=== PATIENT | male | born 1965 | race Caucasian/White ===

== ENCOUNTER 2018-10-20 14:00 | Inpatient (IN) ==
[2018-10-20] MEDS ORDERED: DEXTROSE 50% 25 GM/50 ML VIAL IV PRN (18:29)
[2018-10-20] MEDS ORDERED: ALBUTEROL 2.5 MG/3 ML NEB RESP TX PRN (18:29)
[2018-10-20] MEDS ORDERED: GLUCAGON 1 MG VIAL IM PRN (18:29)
[2018-10-20] MEDS ORDERED: ONDANSETRON 4 MG/2 ML VIAL IV PRN (18:29)
[2018-10-20] MEDS ORDERED: guaiFENesin/DM ER 600-30 MG TABLET PO PRN (18:29)
[2018-10-20] MEDS ORDERED: cefTRIAXone 1,000 MG in SYRINGE 1 EACH IV SCH (18:30)
[2018-10-20] MEDS: AZITHROMYCIN INJ 500 MG in SODIUM CHLORIDE 0.9% 250 ML IV SCH (19:02)
[2018-10-20] MEDS: ENOXAPARIN 40 MG/0.4 ML SYRINGE SUBCUT SCH (19:03)
[2018-10-20] MEDS: SODIUM CHLORIDE 0.9% 1,000 ML IV SCH (19:03)
[2018-10-20] MEDS: ALBUTEROL 2.5 MG/3 ML NEB RESP TX SCH (20:17)
[2018-10-20] MEDS: INSULIN REGULAR 100 UNIT/ML SUBCUT SCH (20:36)
[2018-10-21] MEDS: ALBUTEROL 2.5 MG/3 ML NEB RESP TX SCH ×4 (00:25→19:07)
[2018-10-21 03:52] LABS: Basophils % 0.2 % (0.0-0.8); Eosinophils % 0.2 % (0.00-10.9); Hematocrit 39.4 VOL% (42.0-52.0); Hemoglobin 12.1 GM/DL (14.0-18.0); Immature Granulocytes % 0.7 %; Immature Granulocytes Absolute 0.08 #; Lymphocytes # 1.6 10*3/uL (1.4-4.0); Lymphocytes % 14.5 % (21.2-54.2); Mean Corpuscular HGB Conc 30.7 GM/DL (32-36); Mean Corpuscular Volume 82.1 FL (87-102); Mean Platelet Volume 10.4 FL (9.6-12.0); Monocytes % 10.3 % (1.7-12.7); Neutrophils % 74.1 % (38.7-73.9); Platelet Count 336 T/CUMM (130-400); Red Cell Distribution Width 14.8 % (9.3-17.3); White Blood Count 11.3 T/CUMM (4-12)
[2018-10-21 04:07] LABS: Calcium 8.4 MG/DL (8.5-10.1); Osmolality,Calculated 278.7 MOS/KG (273-304)
[2018-10-21] MEDS: SODIUM CHLORIDE 0.9% 1,000 ML IV SCH ×3 (06:00→22:00)
[2018-10-21 06:52] LABS: Band Neutrophils 2 % (0-10); Hypochromasia 1+; Lymphocytes 16 % (20-55); Platelet Estimate Adequate; Segmented Neutrophils 75 % (50-85); Total Cells Counted 100
[2018-10-21 08:23] LABS: PT Patient Result 10.5 SECS
[2018-10-21] MEDS: INSULIN REGULAR 100 UNIT/ML SUBCUT SCH ×4 (09:08→21:05)
[2018-10-21] MEDS: PANTOPRAZOLE 40 MG TABLET PO SCH (09:11)
[2018-10-21] MEDS: PIPERACILLIN/TAZOBACTAM 3.375 MG in SODIUM CHLORIDE 0.9% 100 ML IV SCH ×2 (10:35→18:43)
[2018-10-21] MEDS ORDERED: cefTRIAXone 1,000 MG in SYRINGE 1 EACH IV SCH (13:00)
[2018-10-21] MEDS: KETOROLAC 30 MG/1 ML VIAL IV SCH ×2 (15:11→21:05)
[2018-10-21] MEDS: VANCOMYCIN INJ 1,250 MG in SODIUM CHLORIDE 0.9% 250 ML IV SCH (15:11)
[2018-10-21] MEDS: METAXALONE 800 MG TABLET PO SCH ×2 (15:11→21:05)
[2018-10-21] MEDS: AZITHROMYCIN INJ 500 MG in SODIUM CHLORIDE 0.9% 250 ML IV SCH (17:48)
[2018-10-21] MEDS: ENOXAPARIN 40 MG/0.4 ML SYRINGE SUBCUT SCH (17:48)
[2018-10-22] MEDS: ALBUTEROL 2.5 MG/3 ML NEB RESP TX SCH ×4 (00:24→20:33)
[2018-10-22] MEDS: KETOROLAC 30 MG/1 ML VIAL IV SCH ×4 (03:05→21:33)
[2018-10-22] MEDS: PIPERACILLIN/TAZOBACTAM 3.375 MG in SODIUM CHLORIDE 0.9% 100 ML IV SCH ×3 (03:07→20:01)
[2018-10-22 04:57] LABS: Basophils % 0.4 % (0.0-0.8); Eosinophils # 0.1 10*3/uL (0.0-0.87); Eosinophils % 1.1 % (0.00-10.9); Hematocrit 39.8 VOL% (42.0-52.0); Hemoglobin 12.1 GM/DL (14.0-18.0); Immature Granulocytes % 1.2 %; Immature Granulocytes Absolute 0.13 #; Lymphocytes # 1.4 10*3/uL (1.4-4.0); Lymphocytes % 12.5 % (21.2-54.2); Mean Corpuscular HGB Conc 30.4 GM/DL (32-36); Mean Corpuscular Volume 82.7 FL (87-102); Mean Platelet Volume 10.6 FL (9.6-12.0); Monocytes % 10.6 % (1.7-12.7); Neutrophils % 74.2 % (38.7-73.9); Platelet Count 329 T/CUMM (130-400); Red Blood Count 4.81 MC/CUMM (3.8-5.5); Red Cell Distribution Width 14.8 % (9.3-17.3); White Blood Count 11.1 T/CUMM (4-12)
[2018-10-22 05:15] LABS: Calcium 8.4 MG/DL (8.5-10.1); Osmolality,Calculated 284.5 MOS/KG (273-304)
[2018-10-22] MEDS: VANCOMYCIN INJ 1,250 MG in SODIUM CHLORIDE 0.9% 250 ML IV SCH (09:11)
[2018-10-22] MEDS: INSULIN REGULAR 100 UNIT/ML SUBCUT SCH ×4 (09:11→21:32)
[2018-10-22] MEDS ORDERED: MORPHINE 10 MG/1 ML VIAL IV ONE (10:30)
[2018-10-22] MEDS ORDERED: LIDOCAINE 1%/EPI INJ 20 ML VIAL MISC INJ ONE ×2 (10:30→11:30)
[2018-10-22] MEDS ORDERED: ALTEPLASE 5 MG in SYRINGE 1 EACH INTRAPLEUR ONE (15:12)
[2018-10-22] MEDS: METAXALONE 800 MG TABLET PO SCH ×3 (15:26→21:33)
[2018-10-22] MEDS: AZITHROMYCIN 250 MG TABLET PO SCH (15:28)
[2018-10-22] MEDS: PANTOPRAZOLE 40 MG TABLET PO SCH (15:28)
[2018-10-22] MEDS: ENOXAPARIN 40 MG/0.4 ML SYRINGE SUBCUT SCH (20:02)
[2018-10-22] MEDS: MORPHINE 4 MG/1 ML VIAL IV PRN (21:32)
[2018-10-23] MEDS: ALBUTEROL 2.5 MG/3 ML NEB RESP TX SCH ×4 (00:41→19:03)
[2018-10-23] MEDS: VANCOMYCIN INJ 1,250 MG in SODIUM CHLORIDE 0.9% 250 ML IV SCH (00:44)
[2018-10-23] MEDS: PIPERACILLIN/TAZOBACTAM 3.375 MG in SODIUM CHLORIDE 0.9% 100 ML IV SCH ×2 (02:07→21:20)
[2018-10-23] MEDS: MORPHINE 4 MG/1 ML VIAL IV PRN (02:47)
[2018-10-23 05:59] LABS: Calcium 8.4 MG/DL (8.5-10.1); Osmolality,Calculated 286.4 MOS/KG (273-304)
[2018-10-23 06:10] LABS: Basophils % 0.3 % (0.0-0.8); Eosinophils # 0.2 10*3/uL (0.0-0.87); Eosinophils % 1.5 % (0.00-10.9); Hematocrit 38.3 VOL% (42.0-52.0); Immature Granulocytes % 0.8 %; Immature Granulocytes Absolute 0.09 #; Lymphocytes # 1.5 10*3/uL (1.4-4.0); Mean Corpuscular Volume 83.3 FL (87-102); Mean Platelet Volume 11.1 FL (9.6-12.0); Monocytes % 8.3 % (1.7-12.7); Neutrophils % 76.1 % (38.7-73.9); Platelet Count 283 T/CUMM (130-400); White Blood Count 11.5 T/CUMM (4-12)
[2018-10-23 06:11] LABS: Hemoglobin 11.5 GM/DL (14.0-18.0)
[2018-10-23] MEDS ORDERED: ALTEPLASE 5 MG in SYRINGE 1 EACH INTRAPLEUR ONE (09:00)
[2018-10-23] MEDS: AZITHROMYCIN 250 MG TABLET PO SCH (09:24)
[2018-10-23] MEDS: METAXALONE 800 MG TABLET PO SCH ×3 (09:25→21:20)
[2018-10-23] MEDS: PANTOPRAZOLE 40 MG TABLET PO SCH (09:25)
[2018-10-23] MEDS: SODIUM CHLORIDE 0.9% 1,000 ML IV SCH ×3 (18:28→23:31)
[2018-10-23] MEDS: ENOXAPARIN 40 MG/0.4 ML SYRINGE SUBCUT SCH (18:30)
[2018-10-23] MEDS: VANCOMYCIN INJ 1,500 MG in SODIUM CHLORIDE 0.9% 500 ML IV SCH (18:31)
[2018-10-23] MEDS: HYDROmorphone 2 MG/1 ML VIAL IV PRN (21:19)
[2018-10-23] MEDS: INSULIN REGULAR 100 UNIT/ML SUBCUT SCH ×2 (23:08→23:31)
[2018-10-23] MEDS: ACETAMINOPHEN 325 MG TABLET PO PRN (23:17)
[2018-10-23] MEDS: INSULIN GLARGINE 100 UNIT/ML SUBCUT SCH (23:32)
[2018-10-24] MEDS: ALBUTEROL 2.5 MG/3 ML NEB RESP TX SCH ×4 (00:43→19:09)
[2018-10-24] MEDS: VANCOMYCIN INJ 1,500 MG in SODIUM CHLORIDE 0.9% 500 ML IV SCH ×2 (01:42→15:31)
[2018-10-24] MEDS: PIPERACILLIN/TAZOBACTAM 3.375 MG in SODIUM CHLORIDE 0.9% 100 ML IV SCH ×3 (02:17→19:23)
[2018-10-24] MEDS: HYDROmorphone 2 MG/1 ML VIAL IV PRN ×3 (05:07→19:14)
[2018-10-24] MEDS: INSULIN GLARGINE 100 UNIT/ML SUBCUT SCH (08:00)
[2018-10-24] MEDS: INSULIN REGULAR 100 UNIT/ML SUBCUT SCH ×3 (08:00→22:25)
[2018-10-24] MEDS: METAXALONE 800 MG TABLET PO SCH ×3 (09:54→22:03)
[2018-10-24] MEDS: AZITHROMYCIN 250 MG TABLET PO SCH (09:54)
[2018-10-24] MEDS: PANTOPRAZOLE 40 MG TABLET PO SCH (09:54)
[2018-10-24] MEDS: SODIUM CHLORIDE 0.9% 1,000 ML IV SCH ×2 (15:30→22:25)
[2018-10-24] MEDS: ENOXAPARIN 40 MG/0.4 ML SYRINGE SUBCUT SCH (19:15)
[2018-10-24] MEDS: VANCOMYCIN INJ 1,250 MG in SODIUM CHLORIDE 0.9% 250 ML IV SCH (23:10)
[2018-10-25] MEDS: ALBUTEROL 2.5 MG/3 ML NEB RESP TX SCH ×4 (00:53→18:30)
[2018-10-25] MEDS: VANCOMYCIN INJ 1,500 MG in SODIUM CHLORIDE 0.9% 500 ML IV SCH ×2 (01:10→14:14)
[2018-10-25] MEDS: HYDROmorphone 2 MG/1 ML VIAL IV PRN ×5 (03:06→22:00)
[2018-10-25] MEDS: PIPERACILLIN/TAZOBACTAM 3.375 MG in SODIUM CHLORIDE 0.9% 100 ML IV SCH ×3 (03:09→20:12)
[2018-10-25 05:21] LABS: Basophils % 0.2 % (0.0-0.8); Eosinophils # 0.1 10*3/uL (0.0-0.87); Eosinophils % 0.6 % (0.00-10.9); Hematocrit 34.9 VOL% (42.0-52.0); Hemoglobin 10.8 GM/DL (14.0-18.0); Immature Granulocytes % 0.8 %; Immature Granulocytes Absolute 0.14 #; Lymphocytes # 1.8 10*3/uL (1.4-4.0); Lymphocytes % 10.6 % (21.2-54.2); Mean Corpuscular HGB Conc 30.9 GM/DL (32-36); Mean Corpuscular Volume 81.9 FL (87-102); Mean Platelet Volume 10.6 FL (9.6-12.0); Neutrophils % 80.8 % (38.7-73.9); Platelet Count 357 T/CUMM (130-400); Red Blood Count 4.26 MC/CUMM (3.8-5.5); Red Cell Distribution Width 14.7 % (9.3-17.3); White Blood Count 16.6 T/CUMM (4-12)
[2018-10-25 05:39] LABS: Calcium 8.3 MG/DL (8.5-10.1); Osmolality,Calculated 273.8 MOS/KG (273-304)
[2018-10-25] MEDS: SODIUM CHLORIDE 0.9% 1,000 ML IV SCH ×4 (06:18→20:09)
[2018-10-25] MEDS: METAXALONE 800 MG TABLET PO SCH ×4 (07:54→20:07)
[2018-10-25] MEDS: AZITHROMYCIN 250 MG TABLET PO SCH ×2 (07:55→09:48)
[2018-10-25] MEDS: PANTOPRAZOLE 40 MG TABLET PO SCH ×2 (07:56→09:48)
[2018-10-25] MEDS: INSULIN REGULAR 100 UNIT/ML SUBCUT SCH ×4 (07:58→21:27)
[2018-10-25] MEDS: INSULIN GLARGINE 100 UNIT/ML SUBCUT SCH (09:48)
[2018-10-25] MEDS: ENOXAPARIN 40 MG/0.4 ML SYRINGE SUBCUT SCH (17:58)
[2018-10-26] MEDS: VANCOMYCIN INJ 1,500 MG in SODIUM CHLORIDE 0.9% 500 ML IV SCH ×2 (00:55→15:47)
[2018-10-26] MEDS: HYDROmorphone 2 MG/1 ML VIAL IV PRN ×5 (01:45→20:11)
[2018-10-26] MEDS: PIPERACILLIN/TAZOBACTAM 3.375 MG in SODIUM CHLORIDE 0.9% 100 ML IV SCH ×3 (04:59→20:16)
[2018-10-26 07:14] LABS: Basophils % 0.2 % (0.0-0.8); Eosinophils # 0.2 10*3/uL (0.0-0.87); Hematocrit 35.6 VOL% (42.0-52.0); Hemoglobin 10.9 GM/DL (14.0-18.0); Immature Granulocytes % 0.7 %; Immature Granulocytes Absolute 0.13 #; Lymphocytes # 1.6 10*3/uL (1.4-4.0); Mean Corpuscular HGB Conc 30.6 GM/DL (32-36); Mean Corpuscular Volume 81.8 FL (87-102); Monocytes % 7.8 % (1.7-12.7); Neutrophils % 81.3 % (38.7-73.9); Platelet Count 355 T/CUMM (130-400); Red Blood Count 4.35 MC/CUMM (3.8-5.5); Red Cell Distribution Width 14.7 % (9.3-17.3); White Blood Count 17.4 T/CUMM (4-12)
[2018-10-26] MEDS: ALBUTEROL 2.5 MG/3 ML NEB RESP TX SCH ×4 (07:14→18:30)
[2018-10-26 07:37] LABS: Calcium 8.3 MG/DL (8.5-10.1); Osmolality,Calculated 268.2 MOS/KG (273-304)
[2018-10-26] MEDS: METAXALONE 800 MG TABLET PO SCH ×2 (08:36→15:43)
[2018-10-26] MEDS: AZITHROMYCIN 250 MG TABLET PO SCH (08:36)
[2018-10-26] MEDS: PANTOPRAZOLE 40 MG TABLET PO SCH (08:36)
[2018-10-26] MEDS: INSULIN REGULAR 100 UNIT/ML SUBCUT SCH ×3 (09:16→17:14)
[2018-10-26] MEDS: INSULIN GLARGINE 100 UNIT/ML SUBCUT SCH (09:16)
[2018-10-26] MEDS: SODIUM CHLORIDE 0.9% 1,000 ML IV SCH ×2 (09:17→16:15)
[2018-10-26] MEDS: tiZANidine 4 MG TABLET PO PRN ×2 (13:29→20:11)
[2018-10-26] MEDS ORDERED: MAGNESIUM HYDROXIDE SUSP 30 ML UDCUP PO PRN (13:44)
[2018-10-26] MEDS: POLYETHYLENE GLYCOL POWDER 17 GM PACK PO SCH (14:08)
[2018-10-26] MEDS: ACETAMINOPHEN 325 MG TABLET PO PRN (20:10)
[2018-10-27] MEDS: HYDROmorphone 2 MG/1 ML VIAL IV PRN ×4 (01:02→18:30)
[2018-10-27] MEDS: VANCOMYCIN INJ 1,500 MG in SODIUM CHLORIDE 0.9% 500 ML IV SCH ×2 (01:04→15:10)
[2018-10-27] MEDS: INSULIN REGULAR 100 UNIT/ML SUBCUT SCH ×5 (01:25→21:40)
[2018-10-27] MEDS: PIPERACILLIN/TAZOBACTAM 3.375 MG in SODIUM CHLORIDE 0.9% 100 ML IV SCH ×3 (05:30→19:46)
[2018-10-27] MEDS: SODIUM CHLORIDE 0.9% 1,000 ML IV SCH ×2 (05:31→15:11)
[2018-10-27 05:36] LABS: Basophils % 0.3 % (0.0-0.8); Eosinophils # 0.2 10*3/uL (0.0-0.87); Eosinophils % 1.5 % (0.00-10.9); Hemoglobin 10.7 GM/DL (14.0-18.0); Immature Granulocytes % 0.8 %; Immature Granulocytes Absolute 0.12 #; Lymphocytes # 1.6 10*3/uL (1.4-4.0); Lymphocytes % 10.9 % (21.2-54.2); Mean Corpuscular HGB Conc 29.7 GM/DL (32-36); Mean Corpuscular Volume 82.9 FL (87-102); Mean Platelet Volume 10.5 FL (9.6-12.0); Monocytes % 7.8 % (1.7-12.7); Neutrophils % 78.7 % (38.7-73.9); Platelet Count 397 T/CUMM (130-400); Red Blood Count 4.34 MC/CUMM (3.8-5.5); Red Cell Distribution Width 14.6 % (9.3-17.3); White Blood Count 14.3 T/CUMM (4-12)
[2018-10-27 06:14] LABS: Calcium 8.5 MG/DL (8.5-10.1); Osmolality,Calculated 270.1 MOS/KG (273-304)
[2018-10-27] MEDS ORDERED: ALBUTEROL/IPRATROPIUM 3 ML NEB RESP TX ONE (07:00)
[2018-10-27] MEDS ORDERED: DIAZEPAM 5 MG TABLET PO ONE (07:00)
[2018-10-27] MEDS: ALBUTEROL 2.5 MG/3 ML NEB RESP TX SCH ×4 (07:15→19:25)
[2018-10-27] MEDS: INSULIN GLARGINE 100 UNIT/ML SUBCUT SCH (08:30)
[2018-10-27] MEDS ORDERED: BUPIVACAINE LIPOSOMAL 20 ML/266 MG VIAL ONE (09:27)
[2018-10-27] MEDS ORDERED: BUPIVACAINE 0.5% 50 ML VIAL ONE (09:41)
[2018-10-27] MEDS ORDERED: DEXAMETHASONE 4 MG/1 ML VIAL ONE ×2 (09:41→13:15)
[2018-10-27] MEDS ORDERED: EPINEPHrine 1 MG/ML VIAL ONE (09:41)
[2018-10-27] MEDS ORDERED: LIDOCAINE 1% 5 ML VIAL ONE (09:42)
[2018-10-27] MEDS ORDERED: HYDROmorphone 2 MG/1 ML VIAL ONE (10:03)
[2018-10-27] MEDS ORDERED: NITROGLYCERIN DRIP 0 MG/0 ML BOTTLE IV ONE (10:03)
[2018-10-27] MEDS ORDERED: HYDROmorphone 2 MG/1 ML VIAL IV ONE (10:30)
[2018-10-27] MEDS ORDERED: PROPOFOL 200 MG/20 ML VIAL IV ONE (13:14)
[2018-10-27] MEDS ORDERED: NEOSTIGMINE 10 MG/10 ML VIAL ONE (13:15)
[2018-10-27] MEDS ORDERED: MIDAZOLAM 2 MG/2 ML VIAL ONE (13:15)
[2018-10-27] MEDS ORDERED: ROCURONIUM 100 MG/10 ML VIAL IV ONE (13:15)
[2018-10-27] MEDS ORDERED: PHENYLEPHRINE 1 MG/10 ML SYRINGE IV ONE (13:15)
[2018-10-27] MEDS ORDERED: SEVOFLURANE 1 UNIT/15 MINUTE INH ONE (13:15)
[2018-10-27] MEDS ORDERED: ACETAMINOPHEN 1,000 MG/100 ML VIAL IV ONE (13:15)
[2018-10-27] MEDS ORDERED: ONDANSETRON 4 MG/2 ML VIAL ONE (13:15)
[2018-10-27] MEDS ORDERED: GLYCOPYRROLATE 0.4 MG/2 ML VIAL ONE (13:15)
[2018-10-27] MEDS ORDERED: LACTATED RINGERS 2,000 ML IV ONE (13:15)
[2018-10-27 13:21] LABS: Apearance,Urine CLEAR (Clear); Bilirubin,Urine Negative (Negative); Blood, Urine Negative (Negative); Glucose,Urine (UA) Negative (Negative); Ketones,Urine Negative (Negative); Mucus,Urine Occasional /LPF (Occasional); Nitrite,Urine Negative (Negative); Protein,Urine Negative; RBC,Urine 1 /HPF (0-4); Squamous Epithelial Cell,Urine Occasional /HPF (0-10); Urine Color Straw (Yellow); Urine Urobilinogen < 2.0 EU/DL (0.2-1.0)
[2018-10-27] MEDS: POLYETHYLENE GLYCOL POWDER 17 GM PACK PO SCH (14:56)
[2018-10-27] MEDS: PANTOPRAZOLE 40 MG TABLET PO SCH (15:10)
[2018-10-27 15:31] LABS: Lymphocytes,Pleural Fluid 18 %; Monocytes,Pleural Fluid 2 %; Neutrophils,Pleural Fluid 80 %
[2018-10-27 15:32] LABS: RBC,Pleural Fluid > 100000 T/CUMM
[2018-10-27 15:50] LABS: Glucose,Pleural Fluid 74 MG/DL; LDH,Body Fluid 2558 U/L
[2018-10-27] MEDS: tiZANidine 4 MG TABLET PO PRN (21:19)
[2018-10-28] MEDS: VANCOMYCIN INJ 1,500 MG in SODIUM CHLORIDE 0.9% 500 ML IV SCH ×2 (00:30→13:30)
[2018-10-28] MEDS: ALBUTEROL 2.5 MG/3 ML NEB RESP TX SCH ×4 (01:08→19:39)
[2018-10-28] MEDS: SODIUM CHLORIDE 0.9% 1,000 ML IV SCH ×3 (01:19→19:09)
[2018-10-28] MEDS: HYDROmorphone 2 MG/1 ML VIAL IV PRN ×5 (01:20→22:30)
[2018-10-28] MEDS: PIPERACILLIN/TAZOBACTAM 3.375 MG in SODIUM CHLORIDE 0.9% 100 ML IV SCH ×3 (03:14→22:36)
[2018-10-28] MEDS: tiZANidine 4 MG TABLET PO PRN ×2 (05:37→21:55)
[2018-10-28 07:17] LABS: Basophils % 0.2 % (0.0-0.8); Eosinophils % 0.2 % (0.00-10.9); Hematocrit 30.8 VOL% (42.0-52.0); Hemoglobin 9.3 GM/DL (14.0-18.0); Immature Granulocytes % 0.9 %; Immature Granulocytes Absolute 0.16 #; Mean Corpuscular HGB Conc 30.2 GM/DL (32-36); Mean Corpuscular Volume 83.2 FL (87-102); Mean Platelet Volume 9.8 FL (9.6-12.0); Monocytes % 6.1 % (1.7-12.7); Neutrophils % 81.6 % (38.7-73.9); Platelet Count 471 T/CUMM (130-400); Red Cell Distribution Width 14.5 % (9.3-17.3)
[2018-10-28 07:33] LABS: Calcium 7.9 MG/DL (8.5-10.1)
[2018-10-28] MEDS: INSULIN GLARGINE 100 UNIT/ML SUBCUT SCH (09:40)
[2018-10-28] MEDS: PANTOPRAZOLE 40 MG TABLET PO SCH (09:40)
[2018-10-28] MEDS: INSULIN REGULAR 100 UNIT/ML SUBCUT SCH ×4 (10:02→21:55)
[2018-10-28] MEDS: POLYETHYLENE GLYCOL POWDER 17 GM PACK PO SCH (10:03)
[2018-10-28] MEDS ORDERED: oxyCODONE ER 20 MG TABLET PO ONE (12:25)
[2018-10-28] MEDS: ACETAMINOPHEN 325 MG TABLET PO PRN (23:15)
[2018-10-29] MEDS: ALBUTEROL 2.5 MG/3 ML NEB RESP TX SCH ×4 (00:53→21:00)
[2018-10-29] MEDS: VANCOMYCIN INJ 1,500 MG in SODIUM CHLORIDE 0.9% 500 ML IV SCH ×2 (03:09→15:47)
[2018-10-29] MEDS: tiZANidine 4 MG TABLET PO PRN ×3 (03:11→15:46)
[2018-10-29] MEDS: SODIUM CHLORIDE 0.9% 1,000 ML IV SCH ×2 (03:51→13:09)
[2018-10-29] MEDS: HYDROmorphone 2 MG/1 ML VIAL IV PRN ×3 (04:30→19:33)
[2018-10-29 04:43] LABS: Basophils % 0.3 % (0.0-0.8); Eosinophils # 0.2 10*3/uL (0.0-0.87); Eosinophils % 1.6 % (0.00-10.9); Hematocrit 29.9 VOL% (42.0-52.0); Hemoglobin 8.9 GM/DL (14.0-18.0); Immature Granulocytes % 0.8 %; Immature Granulocytes Absolute 0.08 #; Lymphocytes % 19.2 % (21.2-54.2); Mean Corpuscular HGB Conc 29.8 GM/DL (32-36); Mean Corpuscular Volume 82.8 FL (87-102); Neutrophils % 70.1 % (38.7-73.9); Platelet Count 494 T/CUMM (130-400); Red Blood Count 3.61 MC/CUMM (3.8-5.5); Red Cell Distribution Width 14.6 % (9.3-17.3); White Blood Count 10.2 T/CUMM (4-12)
[2018-10-29 04:59] LABS: Calcium 7.4 MG/DL (8.5-10.1); Osmolality,Calculated 281.3 MOS/KG (273-304)
[2018-10-29] MEDS: PIPERACILLIN/TAZOBACTAM 3.375 MG in SODIUM CHLORIDE 0.9% 100 ML IV SCH (06:07)
[2018-10-29] MEDS: INSULIN REGULAR 100 UNIT/ML SUBCUT SCH ×4 (08:24→21:13)
[2018-10-29] MEDS ORDERED: PHENOL 1.4% THROAT SPRAY 177 ML BOTTLE PO PRN (08:58)
[2018-10-29] MEDS: INSULIN GLARGINE 100 UNIT/ML SUBCUT SCH (09:23)
[2018-10-29] MEDS: PANTOPRAZOLE 40 MG TABLET PO SCH (09:23)
[2018-10-29] MEDS: POLYETHYLENE GLYCOL POWDER 17 GM PACK PO SCH (09:27)
[2018-10-30] MEDS: ALBUTEROL 2.5 MG/3 ML NEB RESP TX SCH ×3 (00:14→13:46)
[2018-10-30] MEDS: HYDROmorphone 2 MG/1 ML VIAL IV PRN ×3 (00:51→09:32)
[2018-10-30] MEDS: VANCOMYCIN INJ 1,500 MG in SODIUM CHLORIDE 0.9% 500 ML IV SCH (03:42)
[2018-10-30 04:17] LABS: Basophils % 0.4 % (0.0-0.8); Eosinophils # 0.2 10*3/uL (0.0-0.87); Eosinophils % 1.7 % (0.00-10.9); Hematocrit 32.2 VOL% (42.0-52.0); Hemoglobin 9.5 GM/DL (14.0-18.0); Immature Granulocytes % 0.8 %; Immature Granulocytes Absolute 0.08 #; Lymphocytes # 1.9 10*3/uL (1.4-4.0); Lymphocytes % 17.6 % (21.2-54.2); Mean Corpuscular HGB Conc 29.5 GM/DL (32-36); Mean Corpuscular Volume 84.1 FL (87-102); Mean Platelet Volume 9.8 FL (9.6-12.0); Monocytes % 7.5 % (1.7-12.7); Platelet Count 597 T/CUMM (130-400); Red Blood Count 3.83 MC/CUMM (3.8-5.5); Red Cell Distribution Width 14.7 % (9.3-17.3); White Blood Count 10.5 T/CUMM (4-12)
[2018-10-30 04:46] LABS: Calcium 8.6 MG/DL (8.5-10.1); Osmolality,Calculated 274.7 MOS/KG (273-304)
[2018-10-30] MEDS: tiZANidine 4 MG TABLET PO PRN ×2 (07:07→12:50)
[2018-10-30] MEDS: INSULIN REGULAR 100 UNIT/ML SUBCUT SCH ×2 (09:17→12:49)
[2018-10-30] MEDS: POLYETHYLENE GLYCOL POWDER 17 GM PACK PO SCH (09:32)
[2018-10-30] MEDS: PANTOPRAZOLE 40 MG TABLET PO SCH (09:32)
[2018-10-30] MEDS: INSULIN GLARGINE 100 UNIT/ML SUBCUT SCH (09:32)
[2018-10-30 13:04] VITALS: BP 137/60
== END 2018-10-30 14:45 | disposition home health service (06) | DRG 163 ==
LOC: N.5E 17:25 → SUATTDRO 17:25 → N.ICU 10-27 14:09 → N.TELES 10-28 16:07
PROVIDERS: ADMIT Internal Medicine; ATTEND Internal Medicine
PROC: IRTHORA (2018-10-21 09:10)